=== PATIENT | female | born 1990 | race Caucasian/White ===

== ENCOUNTER 2018-04-26 16:52 | Inpatient (IN) | payer OTHER, MEDICAID ==
[~2018-04-26] VITALS: Ht 167.6 cm; Wt 55.7 kg
[~2018-04-26 16:52] MED LIST: LAMO100T89 PO; LAMO200T PO; OXCA300T PO; etomidate 2mg/ml inj. ONE; rocuronium 10mg/ml inj IV ONE
[2018-04-26] MEDS ORDERED: LORazepam 2 mg/ml vial IV ONE ×3 (16:55→18:45)
[2018-04-26] MEDS ORDERED: normal saline 1000ML IV soln IVB ONE ×2 (16:55→19:35)
[2018-04-26] MEDS ORDERED: ondansetron/PF 4mg/2ml inj IV ONE (16:55)
[2018-04-26] MEDS ORDERED: levetiracetam inj 1,000 MG in normal saline 100ml IV soln 90 ML IV STA (16:56)
[2018-04-26 17:29] LABS: BASOPHILS # (AUTO) 0.1 X10'3 (0-0.2); BASOPHILS % (AUTO) 0.6 % (0-1); EOSINOPHILS # (AUTO) 0.1 X10'3 (0-0.9); EOSINOPHILS % (AUTO) 1.2 % (0-6); HEMOGLOBIN 14.4 g/dl (12.0-16.0); LYMPHOCYTES % (AUTO) 10.8 % (21-51); MEAN CORPUSCULAR HEMOGLOBIN 32.1 PG (27.0-31.0); MEAN CORPUSCULAR HGB CONC 34.3 % (33.0-36.5); MEAN CORPUSCULAR VOLUME 93.7 FL (78-98); MEAN PLATELET VOLUME 8.5 FL (7.4-10.4); MONOCYTES # (AUTO) 0.5 X10'3 (0-0.9); MONOCYTES % (AUTO) 5.5 % (2-12); NEUTROPHILS # (AUTO) 7.8 X10'3 (1.8-7.7); NEUTROPHILS % (AUTO) 81.9 % (42-75); PLATELET COUNT 224 X10'3 (140-440); RED BLOOD COUNT 4.48 X10'6 (4.20-5.60); RED CELL DISTRIBUTION WIDTH 13.2 % (11.5-14.5); WHITE BLOOD COUNT 9.5 X10'3 (4.5-11.0)
[2018-04-26 17:37] LABS: CLARITY,URINE CLOUDY (Clear); COLOR,URINE YELLOW (Yellow); GLUCOSE, URINE NEGATIVE (Neg); KETONES,URINE 40 mg/dl (Neg); LEUKOCYTE ESTERASE ,URINE NEGATIVE (Neg); NITRITES, URINE NEGATIVE (Neg); OCCULT BLOOD,URINE NEGATIVE (Neg); PH,URINE 5.5 (4.8-8.0); PROTEIN,URINE 30 mg/dl (Neg); UROBILINOGEN,URINE 0.2 E.U/dL (0.2-1.0)
[2018-04-26 17:39] LABS: UA COLLECTION TYPE STRAIGHT CATH
[2018-04-26 17:47] LABS: SQUAMOUS EPITHELIAL CELL,UR FEW /LPF (FEW)
[2018-04-26 17:48] LABS: MUCUS STRANDS MODERATE /LPF (Neg)
[2018-04-26 17:49] LABS: BACTERIA,URINE FEW /HPF (Neg); RBC,URINE 0-2 /HPF (0-2); WBC,URINE 0-4 /HPF (0-4)
[2018-04-26 17:54] LABS: ALANINE AMINOTRANSFERASE 25 U/L (12-78); ALBUMIN 4.2 G/DL (3.4-5.0); ALBUMIN/GLOBULIN RATIO 1.1 (1.1-1.5); ALKALINE PHOSPHATASE 93 IU/L (46-116); ANION GAP 11 (8-16); ASPARTATE AMINO TRANSFERASE 40 U/L (10-37); BILIRUBIN,TOTAL 0.3 MG/DL (0.1-1.0); BLOOD UREA NITROGEN 18 MG/DL (7-18); BUN/CREATININE RATIO 24.3 (6.6-38.0); CALCIUM 9.2 MG/DL (8.5-10.1); CHLORIDE 101 MMOL/L (99-107); CREATININE 0.74 MG/DL (0.40-0.90); GLUCOSE 89 MG/DL (70-104); LIPASE 95 U/L (73-393); POTASSIUM 3.5 MMOL/L (3.5-5.1); SODIUM 138 MMOL/L (135-145); TOTAL CARBON DIOXIDE 26.4 MMOL/L (24-32); eGFR > 90 ML/MIN
[2018-04-26 17:58] LABS: CARBAMAZEPINE (TEGRETOL) < 0.5 UG/ML (4.0-12.0)
[2018-04-26] MEDS ORDERED: phenobarbital inj 500 MG in normal saline 250ml IV soln 246.1538 ML IV ONE (19:05)
[2018-04-26] MEDS ORDERED: propofol 1000mg/100ml bottle 100 ML IV PRN (20:07)
[2018-04-26] MEDS ORDERED: midazolam 2 mg/2 ml injection IV ONE (20:10)
[2018-04-26] MEDS ORDERED: fentaNYL/PF 50MCG/1 ML 2ML syringe IV PRN (20:10)
[2018-04-26] MEDS ORDERED: CefTRIAXone 2gm/D5W 50ml 50 ML IV ONE (20:15)
[2018-04-26 20:24] LABS: MAGNESIUM 2.1 MG/DL (1.5-2.4); PHOSPHORUS 2.7 MG/DL (2.3-4.5)
[2018-04-26] MEDS ORDERED: levetiracetam inj 500 MG in normal saline 100ml IV soln 95 ML IV STA (20:28)
[2018-04-26 20:32] LABS: URINE AMPHETAMINE SCREEN POSITIVE (Neg); URINE BARBITUATE SCREEN NEGATIVE (Neg); URINE BENZODIAZEPINES SCREEN NEGATIVE (Neg); URINE CANNABINOID SCREEN POSITIVE (Neg); URINE COCAINE SCREEN NEGATIVE (Neg); URINE METHADONE SCREEN NEGATIVE (Neg); URINE OPIATE SCREEN NEGATIVE (Neg); URINE PHENCYCLIDINE SCREEN NEGATIVE (Neg)
[2018-04-26] MEDS ORDERED: potassium Cl 40MEQ/NS 500ml 500 ML IV PRN ×2 (20:45)
[2018-04-26] MEDS ORDERED: magnesium 1gm/100ml D5W IVPB 100 ML IV PRN (20:45)
[2018-04-26] MEDS: K, MAG and/or Phos replacement - Verify level? MC SCH (20:45)
[2018-04-26] MEDS ORDERED: ondansetron/PF 4mg/2ml inj IV PRN (20:45)
[2018-04-26] MEDS ORDERED: magnesium hydroxide 30ml (MOM) UD suspension PO PRN (20:45)
[2018-04-26] MEDS ORDERED: acetaminophen 325mg tablet PO PRN (20:45)
[2018-04-26] MEDS ORDERED: potassium Cl 20 mEq SR tablet PO PRN ×2 (20:45)
[2018-04-26] MEDS ORDERED: magnesium Cl slow-release 64mg tablet PO PRN (20:45)
[2018-04-26] MEDS ORDERED: magnesium 4gm in 100ml NS 100 ML IV PRN (20:45)
[2018-04-26] MEDS ORDERED: morphine 4 MG/ML inj SYRINge IV PRN ×2 (20:45)
[2018-04-26] MEDS ORDERED: ipratropium/albuterol 3ml nebule NEB PRN (20:45)
[2018-04-26 20:50] LABS: HCG SERUM QL NEGATIVE
[2018-04-26] MEDS ORDERED: acyclovir inj 1,000 MG in normal saline 250ml IV soln 230 ML IV STA (21:10)
[2018-04-26 21:11] LABS: ABG HCO3 19.4 mmol/L (22.0-26.0); ABG OXYGEN SATURATION 98.7 % (95-98); ABG PCO2 (T) 34.9 mmHg (32.0-45.0); ABG PH (T) 7.367 (7.350-7.450); ABG PO2 (T) 176.4 mmHg (83-108); ALLEN'S TEST Positive; FCOHb 0.2 % (0.5-1.5); FMetHb 0.1 % (0.3-1.12); FO2Hb 98.4 % (94-100); MINUTE VOLUME 9 L/min; PATIENT TEMPERATURE 37.7; PEEP 5 cm H2O; RESPIRATORY RATE 14 b/min; RESPIRATORY RATE (OBSERVED) 20 b/min; TIDAL VOLUME 400 mL; TOTAL HEMOGLOBIN 11.8 G/dl (12.0-16.0)
[2018-04-26 21:32] LABS: APPEARANCE,CSF CLEAR; CSF RBC 1 /CU MM (0); CSF SUPERNATANT COLOR COLORLESS; CSF VOLUME 4 ML; TUBE# COUNTED 4
[2018-04-26 21:35] LABS: CSF WBC CT 1 /CU MM (0-5)
[2018-04-26 21:38] LABS: GLUCOSE,CSF 69 MG/DL (40-75); TOTAL PROTEIN,CSF 42 MG/DL (15-45)
[2018-04-26] MEDS: normal saline 1000ml 1,000 ML IV SCH (22:04)
[2018-04-26] MEDS: midazolam 100mg in NS 100ml 100 ML IV PRN (22:53)
[2018-04-26] MEDS: FENTANYL-0.9 % NACL/PF 100 ML IV PRN (22:53)
[2018-04-26 23:00] VITALS: BP 117/71
[2018-04-26 23:00] LABS: BASOPHILS % (AUTO) 0.4 % (0-1); EOSINOPHILS % (AUTO) 0.6 % (0-6); HEMOGLOBIN 11.1 g/dl (12.0-16.0); LYMPHOCYTES # (AUTO) 1.6 X10'3 (1.1-4.8); LYMPHOCYTES % (AUTO) 22.4 % (21-51); MEAN CORPUSCULAR HGB CONC 33.8 % (33.0-36.5); MEAN CORPUSCULAR VOLUME 94.8 FL (78-98); MEAN PLATELET VOLUME 8.6 FL (7.4-10.4); MONOCYTES # (AUTO) 0.6 X10'3 (0-0.9); NEUTROPHILS # (AUTO) 4.7 X10'3 (1.8-7.7); NEUTROPHILS % (AUTO) 67.6 % (42-75); PLATELET COUNT 161 X10'3 (140-440); RED BLOOD COUNT 3.48 X10'6 (4.20-5.60); RED CELL DISTRIBUTION WIDTH 12.9 % (11.5-14.5)
[2018-04-27] VITALS (24 sets, daily range): BP systolic 105–134; BP diastolic 60–85
[2018-04-27 02:08] LABS: BASOPHILS % (AUTO) 0.4 % (0-1); EOSINOPHILS # (AUTO) 0.1 X10'3 (0-0.9); HEMATOCRIT 33.1 % (35.0-45.0); HEMOGLOBIN 11.2 g/dl (12.0-16.0); LYMPHOCYTES # (AUTO) 2.4 X10'3 (1.1-4.8); LYMPHOCYTES % (AUTO) 26.5 % (21-51); MEAN CORPUSCULAR HEMOGLOBIN 32.1 PG (27.0-31.0); MEAN CORPUSCULAR HGB CONC 33.7 % (33.0-36.5); MEAN CORPUSCULAR VOLUME 95.1 FL (78-98); MEAN PLATELET VOLUME 8.3 FL (7.4-10.4); MONOCYTES # (AUTO) 0.9 X10'3 (0-0.9); MONOCYTES % (AUTO) 10.2 % (2-12); NEUTROPHILS # (AUTO) 5.7 X10'3 (1.8-7.7); NEUTROPHILS % (AUTO) 61.9 % (42-75); PLATELET COUNT 163 X10'3 (140-440); RED BLOOD COUNT 3.48 X10'6 (4.20-5.60); RED CELL DISTRIBUTION WIDTH 12.8 % (11.5-14.5); WHITE BLOOD COUNT 9.2 X10'3 (4.5-11.0)
[2018-04-27] MEDS: LORazepam 2 mg/ml vial IV PRN (02:15)
[2018-04-27 02:23] LABS: ALANINE AMINOTRANSFERASE 32 U/L (12-78); ALBUMIN 2.9 G/DL (3.4-5.0); ALKALINE PHOSPHATASE 68 IU/L (46-116); ANION GAP 9 (8-16); ASPARTATE AMINO TRANSFERASE 39 U/L (10-37); BILIRUBIN,TOTAL 0.2 MG/DL (0.1-1.0); BLOOD UREA NITROGEN 12 MG/DL (7-18); BUN/CREATININE RATIO 20.3 (6.6-38.0); CALCIUM 7.4 MG/DL (8.5-10.1); CHLORIDE 109 MMOL/L (99-107); CREATININE 0.59 MG/DL (0.40-0.90); GLUCOSE 78 MG/DL (70-104); MAGNESIUM 1.9 MG/DL (1.5-2.4); SODIUM 143 MMOL/L (135-145); TOTAL PROTEIN 5.8 G/DL (6.4-8.2); eGFR > 90 ML/MIN
[2018-04-27] MEDS: potassium Cl 40MEQ/250ML bag 250 ML IV PRN ×3 (03:08→11:15)
[2018-04-27 03:16] LABS: ABG BASE EXCESS -1.1 mmol/L (-2.0-3.0); ABG HCO3 23.6 mmol/L (22.0-26.0); ABG OXYGEN SATURATION 97.9 % (95-98); ABG PCO2 (T) 40.2 mmHg (32.0-45.0); ABG PH (T) 7.388 (7.350-7.450); ABG PO2 (T) 116.8 mmHg (83-108); ALLEN'S TEST Positive; FCOHb 0.3 % (0.5-1.5); FMetHb 0.1 % (0.3-1.12); FO2Hb 97.5 % (94-100); MINUTE VOLUME 6 L/min; PATIENT TEMPERATURE 37.6; PEEP 5 cm H2O; RESPIRATORY RATE 14 b/min; RESPIRATORY RATE (OBSERVED) 14 b/min; TIDAL VOLUME 400 mL
[2018-04-27] MEDS ORDERED: CARB200T PO ×2 (05:21→05:22)
[2018-04-27] MEDS ORDERED: CARB100T7 PO ×2 (06:10→06:11)
[2018-04-27 07:07] LABS: BASOPHILS % (AUTO) 0.6 % (0-1); EOSINOPHILS % (AUTO) 0.5 % (0-6); HEMATOCRIT 32.3 % (35.0-45.0); LYMPHOCYTES # (AUTO) 2.7 X10'3 (1.1-4.8); MEAN CORPUSCULAR HEMOGLOBIN 31.7 PG (27.0-31.0); MEAN CORPUSCULAR VOLUME 93.4 FL (78-98); MEAN PLATELET VOLUME 8.1 FL (7.4-10.4); MONOCYTES # (AUTO) 0.8 X10'3 (0-0.9); MONOCYTES % (AUTO) 9.6 % (2-12); NEUTROPHILS # (AUTO) 4.8 X10'3 (1.8-7.7); NEUTROPHILS % (AUTO) 57.3 % (42-75); PLATELET COUNT 161 X10'3 (140-440); RED BLOOD COUNT 3.46 X10'6 (4.20-5.60); RED CELL DISTRIBUTION WIDTH 13.3 % (11.5-14.5); WHITE BLOOD COUNT 8.3 X10'3 (4.5-11.0)
[2018-04-27] MEDS ORDERED: dextrose 50%-water 50ml dispensing syringe IV PRN (07:30)
[2018-04-27] MEDS: dextrose 50%-water 50ml dispensing syringe IV PRN ×3 (07:33→20:39)
[2018-04-27] MEDS: pantoprazole 40 MG vial IV SCH (07:35)
[2018-04-27] MEDS: enoxaparin 40mg/0.4ml syringe SUBCUT SCH (07:37)
[2018-04-27] MEDS: carBAMazepine 100mg chewable tablet PO SCH ×2 (07:38→20:47)
[2018-04-27] MEDS ORDERED: OXCARBAZEPINE PO SCH (08:00)
[2018-04-27] MEDS ORDERED: lamoTRIgine 100mg tablet PO SCH (08:00)
[2018-04-27] MEDS ORDERED: non-formulary drug (Lamotrigine 1 TAB) PO SCH (08:00)
[2018-04-27] MEDS: K, MAG and/or Phos replacement - Verify level? MC SCH (08:00)
[2018-04-27] MEDS: normal saline 1000ml 1,000 ML IV SCH ×2 (08:41→17:27)
[2018-04-27] MEDS: levetiracetam inj 1,000 MG in normal saline 100ml IV soln 90 ML IV SCH ×2 (08:44→20:48)
[2018-04-27] MEDS: midazolam 100mg in NS 100ml 100 ML IV PRN (11:22)
[2018-04-27] MEDS: FENTANYL-0.9 % NACL/PF 100 ML IV PRN (16:16)
[2018-04-28] VITALS (24 sets, daily range): BP systolic 104–136; BP diastolic 66–83
[2018-04-28] MEDS: dextrose 50%-water 50ml dispensing syringe IV PRN (00:44)
[2018-04-28] MEDS: dextrose 5%-1/2 normal saline 1,000 ML IV SCH ×4 (01:25→23:04)
[2018-04-28] MEDS: mineral oil/petrolatum ophthal oint EACHEYE SCH ×4 (02:11→20:05)
[2018-04-28 02:54] LABS: BASOPHILS % (AUTO) 0.3 % (0-1); EOSINOPHILS # (AUTO) 0.1 X10'3 (0-0.9); EOSINOPHILS % (AUTO) 1.1 % (0-6); HEMATOCRIT 32.4 % (35.0-45.0); HEMOGLOBIN 10.9 g/dl (12.0-16.0); LYMPHOCYTES # (AUTO) 2.1 X10'3 (1.1-4.8); LYMPHOCYTES % (AUTO) 27.6 % (21-51); MEAN CORPUSCULAR HEMOGLOBIN 31.9 PG (27.0-31.0); MEAN CORPUSCULAR HGB CONC 33.6 % (33.0-36.5); MEAN CORPUSCULAR VOLUME 94.9 FL (78-98); MEAN PLATELET VOLUME 8.3 FL (7.4-10.4); MONOCYTES # (AUTO) 0.8 X10'3 (0-0.9); MONOCYTES % (AUTO) 10.3 % (2-12); NEUTROPHILS # (AUTO) 4.7 X10'3 (1.8-7.7); NEUTROPHILS % (AUTO) 60.7 % (42-75); PLATELET COUNT 138 X10'3 (140-440); RED BLOOD COUNT 3.42 X10'6 (4.20-5.60); RED CELL DISTRIBUTION WIDTH 12.9 % (11.5-14.5); WHITE BLOOD COUNT 7.8 X10'3 (4.5-11.0)
[2018-04-28 03:10] LABS: ALANINE AMINOTRANSFERASE 29 U/L (12-78); ALBUMIN 2.7 G/DL (3.4-5.0); ALBUMIN/GLOBULIN RATIO 0.9 (1.1-1.5); ALKALINE PHOSPHATASE 67 IU/L (46-116); ANION GAP 6 (8-16); ASPARTATE AMINO TRANSFERASE 26 U/L (10-37); BILIRUBIN,TOTAL 0.4 MG/DL (0.1-1.0); BLOOD UREA NITROGEN 5 MG/DL (7-18); BUN/CREATININE RATIO 9.8 (6.6-38.0); CALCIUM 7.6 MG/DL (8.5-10.1); CHLORIDE 103 MMOL/L (99-107); CREATININE 0.51 MG/DL (0.40-0.90); GLUCOSE 101 MG/DL (70-104); MAGNESIUM 1.7 MG/DL (1.5-2.4); POTASSIUM 3.1 MMOL/L (3.5-5.1); SODIUM 137 MMOL/L (135-145); TOTAL CARBON DIOXIDE 27.9 MMOL/L (24-32); TOTAL PROTEIN 5.8 G/DL (6.4-8.2); eGFR > 90 ML/MIN
[2018-04-28 03:30] LABS: ABG BASE EXCESS 0.2 mmol/L (-2.0-3.0); ABG HCO3 23.9 mmol/L (22.0-26.0); ABG OXYGEN SATURATION 97.9 % (95-98); ABG PCO2 (T) 36.6 mmHg (32.0-45.0); ABG PH (T) 7.436 (7.350-7.450); ABG PO2 (T) 107.5 mmHg (83-108); FCOHb 0.3 % (0.5-1.5); FMetHb 0.1 % (0.3-1.12); FO2Hb 97.5 % (94-100); MINUTE VOLUME 6 L/min; PATIENT TEMPERATURE 37.5; PEEP 5 cm H2O; RESPIRATORY RATE 14 b/min; RESPIRATORY RATE (OBSERVED) 14 b/min; TIDAL VOLUME 400 mL
[2018-04-28] MEDS: pantoprazole 40 MG vial IV SCH (08:26)
[2018-04-28] MEDS: carBAMazepine 100mg chewable tablet PO SCH ×2 (08:26→20:06)
[2018-04-28] MEDS: levetiracetam inj 1,000 MG in normal saline 100ml IV soln 90 ML IV SCH (08:26)
[2018-04-28] MEDS: enoxaparin 40mg/0.4ml syringe SUBCUT SCH (08:27)
[2018-04-28] MEDS: K, MAG and/or Phos replacement - Verify level? MC SCH (08:27)
[2018-04-28] MEDS: potassium Cl 40MEQ/250ML bag 250 ML IV PRN (08:36)
[2018-04-28] MEDS: LORazepam 2 mg/ml vial IV PRN (23:44)
[2018-04-29] VITALS (23 sets, daily range): BP systolic 96–128; BP diastolic 51–83
[2018-04-29] MEDS: mineral oil/petrolatum ophthal oint EACHEYE SCH ×4 (02:30→20:00)
[2018-04-29 03:29] LABS: BASOPHILS % (AUTO) 0.3 % (0-1); EOSINOPHILS # (AUTO) 0.1 X10'3 (0-0.9); EOSINOPHILS % (AUTO) 0.8 % (0-6); HEMATOCRIT 31.9 % (35.0-45.0); HEMOGLOBIN 10.8 g/dl (12.0-16.0); LYMPHOCYTES # (AUTO) 1.6 X10'3 (1.1-4.8); LYMPHOCYTES % (AUTO) 23.3 % (21-51); MEAN CORPUSCULAR HGB CONC 33.8 % (33.0-36.5); MEAN CORPUSCULAR VOLUME 94.7 FL (78-98); MEAN PLATELET VOLUME 8.7 FL (7.4-10.4); MONOCYTES # (AUTO) 0.7 X10'3 (0-0.9); MONOCYTES % (AUTO) 10.3 % (2-12); NEUTROPHILS # (AUTO) 4.6 X10'3 (1.8-7.7); NEUTROPHILS % (AUTO) 65.3 % (42-75); PLATELET COUNT 148 X10'3 (140-440); RED BLOOD COUNT 3.37 X10'6 (4.20-5.60); RED CELL DISTRIBUTION WIDTH 11.7 % (11.5-14.5)
[2018-04-29 03:31] LABS: ALANINE AMINOTRANSFERASE 24 U/L (12-78); ALBUMIN 2.5 G/DL (3.4-5.0); ALBUMIN/GLOBULIN RATIO 0.8 (1.1-1.5); ALKALINE PHOSPHATASE 63 IU/L (46-116); ANION GAP 3 (8-16); ASPARTATE AMINO TRANSFERASE 19 U/L (10-37); BILIRUBIN,TOTAL 0.4 MG/DL (0.1-1.0); BLOOD UREA NITROGEN 4 MG/DL (7-18); BUN/CREATININE RATIO 7.3 (6.6-38.0); CALCIUM 7.8 MG/DL (8.5-10.1); CHLORIDE 103 MMOL/L (99-107); CREATININE 0.55 MG/DL (0.40-0.90); GLUCOSE 107 MG/DL (70-104); MAGNESIUM 1.8 MG/DL (1.5-2.4); SODIUM 137 MMOL/L (135-145); TOTAL CARBON DIOXIDE 30.8 MMOL/L (24-32); TOTAL PROTEIN 5.8 G/DL (6.4-8.2); eGFR > 90 ML/MIN
[2018-04-29 03:34] LABS: POTASSIUM 2.8 MMOL/L (3.5-5.1)
[2018-04-29] MEDS: LORazepam 2 mg/ml vial IV PRN (03:39)
[2018-04-29 03:56] LABS: ABG BASE EXCESS 3.6 mmol/L (-2.0-3.0); ABG HCO3 26.9 mmol/L (22.0-26.0); ABG OXYGEN SATURATION 98.2 % (95-98); ABG PCO2 (T) 36.6 mmHg (32.0-45.0); ABG PH (T) 7.485 (7.350-7.450); ABG PO2 (T) 114.3 mmHg (83-108); FCOHb 0.3 % (0.5-1.5); FO2Hb 97.9 % (94-100); MINUTE VOLUME 6 L/min; PATIENT TEMPERATURE 37.1; PEEP 5 cm H2O; RESPIRATORY RATE 14 b/min; RESPIRATORY RATE (OBSERVED) 16 b/min; TIDAL VOLUME 400 mL; TOTAL HEMOGLOBIN 11.6 G/dl (12.0-16.0)
[2018-04-29] MEDS: potassium Cl 40MEQ/250ML bag 250 ML IV PRN (04:01)
[2018-04-29] MEDS: K, MAG and/or Phos replacement - Verify level? MC SCH (08:05)
[2018-04-29] MEDS: pantoprazole 40 MG vial IV SCH (08:51)
[2018-04-29] MEDS: enoxaparin 40mg/0.4ml syringe SUBCUT SCH (08:51)
[2018-04-29] MEDS: carBAMazepine 100mg chewable tablet PO SCH ×2 (08:52→20:57)
[2018-04-29] MEDS: dextrose 5%-1/2 normal saline 1,000 ML IV SCH (15:52)
[2018-04-29] MEDS: acetaminophen 325mg tablet PO PRN (20:54)
[2018-04-30] VITALS (24 sets, daily range): BP systolic 112–127; BP diastolic 64–80
[2018-04-30] MEDS: mineral oil/petrolatum ophthal oint EACHEYE SCH ×4 (02:00→20:00)
[2018-04-30 03:35] LABS: BASOPHILS % (AUTO) 0.4 % (0-1); EOSINOPHILS # (AUTO) 0.1 X10'3 (0-0.9); EOSINOPHILS % (AUTO) 1.6 % (0-6); HEMATOCRIT 31.1 % (35.0-45.0); HEMOGLOBIN 10.5 g/dl (12.0-16.0); LYMPHOCYTES # (AUTO) 1.1 X10'3 (1.1-4.8); LYMPHOCYTES % (AUTO) 16.3 % (21-51); MEAN CORPUSCULAR HEMOGLOBIN 31.9 PG (27.0-31.0); MEAN CORPUSCULAR HGB CONC 33.8 % (33.0-36.5); MEAN CORPUSCULAR VOLUME 94.5 FL (78-98); MEAN PLATELET VOLUME 8.6 FL (7.4-10.4); MONOCYTES # (AUTO) 0.8 X10'3 (0-0.9); MONOCYTES % (AUTO) 11.3 % (2-12); NEUTROPHILS % (AUTO) 70.4 % (42-75); PLATELET COUNT 151 X10'3 (140-440); RED CELL DISTRIBUTION WIDTH 12.1 % (11.5-14.5)
[2018-04-30 03:38] LABS: ALANINE AMINOTRANSFERASE 26 U/L (12-78); ALBUMIN 2.6 G/DL (3.4-5.0); ALBUMIN/GLOBULIN RATIO 0.7 (1.1-1.5); ALKALINE PHOSPHATASE 69 IU/L (46-116); ANION GAP 8 (8-16); ASPARTATE AMINO TRANSFERASE 16 U/L (10-37); BILIRUBIN,TOTAL 0.5 MG/DL (0.1-1.0); BLOOD UREA NITROGEN 3 MG/DL (7-18); BUN/CREATININE RATIO 5.9 (6.6-38.0); CALCIUM 8.1 MG/DL (8.5-10.1); CHLORIDE 103 MMOL/L (99-107); CREATININE 0.51 MG/DL (0.40-0.90); GLUCOSE 93 MG/DL (70-104); MAGNESIUM 1.9 MG/DL (1.5-2.4); POTASSIUM 3.2 MMOL/L (3.5-5.1); SODIUM 139 MMOL/L (135-145); TOTAL CARBON DIOXIDE 28.4 MMOL/L (24-32); TOTAL PROTEIN 6.1 G/DL (6.4-8.2); eGFR > 90 ML/MIN
[2018-04-30 04:21] LABS: ABG BASE EXCESS 1.7 mmol/L (-2.0-3.0); ABG HCO3 25.2 mmol/L (22.0-26.0); ABG OXYGEN SATURATION 97.3 % (95-98); ABG PH (T) 7.454 (7.350-7.450); ABG PO2 (T) 101.1 mmHg (83-108); FCOHb 0.3 % (0.5-1.5); FMetHb 0.2 % (0.3-1.12); FO2Hb 96.8 % (94-100); MINUTE VOLUME 7 L/min; PATIENT TEMPERATURE 37.8; PEEP 5 cm H2O; RESPIRATORY RATE (OBSERVED) 11 b/min; TOTAL HEMOGLOBIN 11.7 G/dl (12.0-16.0)
[2018-04-30] MEDS: potassium Cl 40MEQ/250ML bag 250 ML IV PRN (05:47)
[2018-04-30] MEDS: dextrose 5%-1/2 normal saline 1,000 ML IV SCH ×2 (05:48→13:05)
[2018-04-30] MEDS: K, MAG and/or Phos replacement - Verify level? MC SCH (08:00)
[2018-04-30] MEDS: carBAMazepine 100mg chewable tablet PO SCH ×2 (09:31→20:48)
[2018-04-30] MEDS: pantoprazole 40 MG vial IV SCH (09:32)
[2018-04-30] MEDS: enoxaparin 40mg/0.4ml syringe SUBCUT SCH (09:32)
[2018-04-30] MEDS: azithromycin 250mg tablet PO SCH (12:46)
[2018-04-30] MEDS ORDERED: LEVETIRACETAM IV SCH (20:00)
[2018-04-30] MEDS ORDERED: levetiracetam inj 1,500 MG in normal saline 100ml IV soln 85 ML IV SCH (20:00)
[2018-04-30] MEDS ORDERED: levetiracetam inj 500 MG in normal saline 100ml IV soln 95 ML IV SCH (20:00)
[2018-04-30] MEDS ORDERED: NORMAL SALINE IV SCH (20:00)
[2018-04-30] MEDS: LEVETIRACETAM IV SCH (20:48)
[2018-04-30] MEDS: NORMAL SALINE IV SCH (20:48)
[2018-04-30] MEDS: acetaminophen 325mg tablet PO PRN (22:13)
[2018-05-01] VITALS (24 sets, daily range): BP systolic 105–128; BP diastolic 63–79
[2018-05-01] MEDS: mineral oil/petrolatum ophthal oint EACHEYE SCH ×4 (02:00→20:00)
[2018-05-01 03:29] LABS: BASOPHILS % (AUTO) 0.3 % (0-1); EOSINOPHILS # (AUTO) 0.1 X10'3 (0-0.9); EOSINOPHILS % (AUTO) 1.3 % (0-6); HEMATOCRIT 31.5 % (35.0-45.0); HEMOGLOBIN 10.7 g/dl (12.0-16.0); LYMPHOCYTES # (AUTO) 1.1 X10'3 (1.1-4.8); LYMPHOCYTES % (AUTO) 15.1 % (21-51); MEAN CORPUSCULAR HEMOGLOBIN 32.2 PG (27.0-31.0); MEAN CORPUSCULAR HGB CONC 33.9 % (33.0-36.5); MEAN CORPUSCULAR VOLUME 95.1 FL (78-98); MEAN PLATELET VOLUME 8.8 FL (7.4-10.4); MONOCYTES # (AUTO) 0.8 X10'3 (0-0.9); MONOCYTES % (AUTO) 11.2 % (2-12); NEUTROPHILS # (AUTO) 5.3 X10'3 (1.8-7.7); NEUTROPHILS % (AUTO) 72.1 % (42-75); PLATELET COUNT 165 X10'3 (140-440); RED BLOOD COUNT 3.31 X10'6 (4.20-5.60); RED CELL DISTRIBUTION WIDTH 11.8 % (11.5-14.5); WHITE BLOOD COUNT 7.3 X10'3 (4.5-11.0)
[2018-05-01 03:42] LABS: ALANINE AMINOTRANSFERASE 28 U/L (12-78); ALBUMIN 2.7 G/DL (3.4-5.0); ALBUMIN/GLOBULIN RATIO 0.7 (1.1-1.5); ALKALINE PHOSPHATASE 75 IU/L (46-116); ANION GAP 7 (8-16); ASPARTATE AMINO TRANSFERASE 17 U/L (10-37); BILIRUBIN,TOTAL 0.3 MG/DL (0.1-1.0); BLOOD UREA NITROGEN 4 MG/DL (7-18); CALCIUM 8.2 MG/DL (8.5-10.1); CHLORIDE 102 MMOL/L (99-107); CREATININE 0.57 MG/DL (0.40-0.90); GLUCOSE 113 MG/DL (70-104); MAGNESIUM 1.9 MG/DL (1.5-2.4); POTASSIUM 3.4 MMOL/L (3.5-5.1); SODIUM 138 MMOL/L (135-145); TOTAL CARBON DIOXIDE 29.4 MMOL/L (24-32); TOTAL PROTEIN 6.7 G/DL (6.4-8.2); eGFR > 90 ML/MIN
[2018-05-01 03:56] LABS: ABG BASE EXCESS 1.8 mmol/L (-2.0-3.0); ABG HCO3 25.2 mmol/L (22.0-26.0); ABG OXYGEN SATURATION 97.9 % (95-98); ABG PCO2 (T) 36.3 mmHg (32.0-45.0); ABG PH (T) 7.462 (7.350-7.450); ABG PO2 (T) 114.5 mmHg (83-108); FCOHb 0.3 % (0.5-1.5); FMetHb 0.2 % (0.3-1.12); FO2Hb 97.4 % (94-100); MINUTE VOLUME 7 L/min; PATIENT TEMPERATURE 37.9; PEEP 5 cm H2O; RESPIRATORY RATE (OBSERVED) 10 b/min; TOTAL HEMOGLOBIN 11.4 G/dl (12.0-16.0)
[2018-05-01] MEDS: dextrose 5%-1/2 normal saline 1,000 ML IV SCH ×2 (04:02→07:55)
[2018-05-01] MEDS: potassium Cl 40MEQ/250ML bag 250 ML IV PRN (05:52)
[2018-05-01] MEDS: pantoprazole 40 MG vial IV SCH (07:53)
[2018-05-01] MEDS: enoxaparin 40mg/0.4ml syringe SUBCUT SCH (07:53)
[2018-05-01] MEDS: NORMAL SALINE IV SCH (07:53)
[2018-05-01] MEDS: LEVETIRACETAM IV SCH (07:53)
[2018-05-01] MEDS: carBAMazepine 100mg chewable tablet PO SCH ×2 (07:54→20:32)
[2018-05-01] MEDS: azithromycin 250mg tablet PO SCH (07:54)
[2018-05-01] MEDS: K, MAG and/or Phos replacement - Verify level? MC SCH (07:55)
[2018-05-01 09:14] LABS: CSF WEST NILE VIRUS, IGG Negative (Negative)
[2018-05-01] MEDS: cefTRIAXone 1g/NS 100ml IVPB 100 ML IV SCH (10:29)
[2018-05-01 14:43] LABS: CSF WEST NILE VIRUS, IGM Negative (Negative)
[2018-05-01] MEDS: levetiracetam inj 500 MG in normal saline 100ml IV soln 95 ML IV SCH (20:31)
[2018-05-01] MEDS: acetaminophen 325mg tablet PO PRN (20:31)
[2018-05-02] VITALS (24 sets, daily range): BP systolic 87–136; BP diastolic 47–80
[2018-05-02] MEDS: dextrose 5%-1/2 normal saline 1,000 ML IV SCH ×3 (00:29→16:02)
[2018-05-02] MEDS: propofol 1000mg/100ml bottle 100 ML IV PRN ×3 (00:34→20:56)
[2018-05-02] MEDS: mineral oil/petrolatum ophthal oint EACHEYE SCH ×4 (02:00→20:54)
[2018-05-02] MEDS: levetiracetam inj 500 MG in normal saline 100ml IV soln 95 ML IV SCH ×4 (03:42→20:38)
[2018-05-02 03:52] LABS: ALANINE AMINOTRANSFERASE 24 U/L (12-78); ALBUMIN 2.5 G/DL (3.4-5.0); ALBUMIN/GLOBULIN RATIO 0.6 (1.1-1.5); ALKALINE PHOSPHATASE 67 IU/L (46-116); ANION GAP 4 (8-16); ASPARTATE AMINO TRANSFERASE 13 U/L (10-37); BILIRUBIN,TOTAL 0.3 MG/DL (0.1-1.0); BLOOD UREA NITROGEN 7 MG/DL (7-18); BUN/CREATININE RATIO 12.5 (6.6-38.0); CALCIUM 8.3 MG/DL (8.5-10.1); CHLORIDE 102 MMOL/L (99-107); CREATININE 0.56 MG/DL (0.40-0.90); GLUCOSE 119 MG/DL (70-104); POTASSIUM 3.1 MMOL/L (3.5-5.1); SODIUM 135 MMOL/L (135-145); TOTAL CARBON DIOXIDE 29.1 MMOL/L (24-32); TOTAL PROTEIN 6.5 G/DL (6.4-8.2); eGFR > 90 ML/MIN
[2018-05-02 03:53] LABS: BASOPHILS % (AUTO) 0.2 % (0-1); EOSINOPHILS # (AUTO) 0.1 X10'3 (0-0.9); EOSINOPHILS % (AUTO) 1.3 % (0-6); HEMATOCRIT 30.2 % (35.0-45.0); HEMOGLOBIN 10.3 g/dl (12.0-16.0); LYMPHOCYTES # (AUTO) 1.1 X10'3 (1.1-4.8); MEAN CORPUSCULAR HEMOGLOBIN 32.3 PG (27.0-31.0); MEAN CORPUSCULAR HGB CONC 33.9 % (33.0-36.5); MEAN CORPUSCULAR VOLUME 95.3 FL (78-98); MEAN PLATELET VOLUME 8.4 FL (7.4-10.4); MONOCYTES # (AUTO) 0.7 X10'3 (0-0.9); MONOCYTES % (AUTO) 9.8 % (2-12); NEUTROPHILS # (AUTO) 5.6 X10'3 (1.8-7.7); NEUTROPHILS % (AUTO) 74.7 % (42-75); PLATELET COUNT 195 X10'3 (140-440); RED BLOOD COUNT 3.17 X10'6 (4.20-5.60); RED CELL DISTRIBUTION WIDTH 12.4 % (11.5-14.5); WHITE BLOOD COUNT 7.5 X10'3 (4.5-11.0)
[2018-05-02 03:56] LABS: ABG BASE EXCESS 3.6 mmol/L (-2.0-3.0); ABG OXYGEN SATURATION 98.2 % (95-98); ABG PCO2 (T) 37.9 mmHg (32.0-45.0); ABG PH (T) 7.474 (7.350-7.450); ABG PO2 (T) 121.9 mmHg (83-108); ALLEN'S TEST Positive; FCOHb 0.3 % (0.5-1.5); FMetHb 0.1 % (0.3-1.12); FO2Hb 97.8 % (94-100); MINUTE VOLUME 7 L/min; PATIENT TEMPERATURE 37.8; PEEP 5 cm H2O; TOTAL HEMOGLOBIN 11.2 G/dl (12.0-16.0)
[2018-05-02] MEDS: enoxaparin 40mg/0.4ml syringe SUBCUT SCH (07:38)
[2018-05-02] MEDS: cefTRIAXone 1g/NS 100ml IVPB 100 ML IV SCH (07:38)
[2018-05-02] MEDS: pantoprazole 40 MG vial IV SCH (07:38)
[2018-05-02] MEDS: potassium Cl 40MEQ/250ML bag 250 ML IV PRN (07:39)
[2018-05-02] MEDS: K, MAG and/or Phos replacement - Verify level? MC SCH (07:47)
[2018-05-02] MEDS: carBAMazepine 100mg chewable tablet PO SCH ×2 (07:47→20:40)
[2018-05-02] MEDS: acetaminophen 325mg tablet PO PRN (09:04)
[2018-05-02] MEDS: dexamethasone sod phosphate 10mg/ml inj IV SCH ×3 (09:28→20:40)
[2018-05-03] VITALS (24 sets, daily range): BP systolic 88–149; BP diastolic 43–97
[2018-05-03] MEDS: dextrose 5%-1/2 normal saline 1,000 ML IV SCH ×3 (01:05→21:05)
[2018-05-03] MEDS: levetiracetam inj 500 MG in normal saline 100ml IV soln 95 ML IV SCH ×4 (02:14→20:23)
[2018-05-03] MEDS: dexamethasone sod phosphate 10mg/ml inj IV SCH ×4 (02:14→20:23)
[2018-05-03] MEDS: mineral oil/petrolatum ophthal oint EACHEYE SCH ×4 (02:14→20:23)
[2018-05-03 03:30] LABS: ABG BASE EXCESS 2.4 mmol/L (-2.0-3.0); ABG HCO3 25.9 mmol/L (22.0-26.0); ABG OXYGEN SATURATION 98.5 % (95-98); ABG PCO2 (T) 35.1 mmHg (32.0-45.0); ABG PH (T) 7.484 (7.350-7.450); ABG PO2 (T) 124.3 mmHg (83-108); ALLEN'S TEST Positive; FCOHb 0.3 % (0.5-1.5); FMetHb 0.2 % (0.3-1.12); MINUTE VOLUME 6 L/min; PATIENT TEMPERATURE 36.5; PEEP 5 cm H2O; RESPIRATORY RATE (OBSERVED) 9 b/min
[2018-05-03] MEDS: propofol 1000mg/100ml bottle 100 ML IV PRN ×3 (03:40→16:32)
[2018-05-03 05:33] LABS: ALANINE AMINOTRANSFERASE 24 U/L (12-78); ALBUMIN 2.5 G/DL (3.4-5.0); ALBUMIN/GLOBULIN RATIO 0.6 (1.1-1.5); ALKALINE PHOSPHATASE 70 IU/L (46-116); ANION GAP 7 (8-16); ASPARTATE AMINO TRANSFERASE 17 U/L (10-37); BILIRUBIN,TOTAL 0.2 MG/DL (0.1-1.0); BLOOD UREA NITROGEN 9 MG/DL (7-18); BUN/CREATININE RATIO 18.4 (6.6-38.0); CALCIUM 8.5 MG/DL (8.5-10.1); CHLORIDE 104 MMOL/L (99-107); CREATININE 0.49 MG/DL (0.40-0.90); GLUCOSE 161 MG/DL (70-104); MAGNESIUM 2.1 MG/DL (1.5-2.4); POTASSIUM 3.8 MMOL/L (3.5-5.1); SODIUM 140 MMOL/L (135-145); TOTAL CARBON DIOXIDE 28.6 MMOL/L (24-32); TOTAL PROTEIN 6.9 G/DL (6.4-8.2); eGFR > 90 ML/MIN
[2018-05-03] MEDS: pantoprazole 40 MG vial IV SCH (07:52)
[2018-05-03] MEDS: enoxaparin 40mg/0.4ml syringe SUBCUT SCH (07:52)
[2018-05-03] MEDS: acetaminophen 325mg tablet PO PRN (07:53)
[2018-05-03] MEDS: cefTRIAXone 1g/NS 100ml IVPB 100 ML IV SCH (07:55)
[2018-05-03] MEDS: carBAMazepine 100mg chewable tablet PO SCH ×2 (08:00→20:24)
[2018-05-03] MEDS: K, MAG and/or Phos replacement - Verify level? MC SCH (08:00)
[2018-05-03 08:49] LABS: BASOPHILS # (AUTO) 0.1 X10'3 (0-0.2); EOSINOPHILS % (AUTO) 0.1 % (0-6); HEMATOCRIT 33.6 % (35.0-45.0); HEMOGLOBIN 11.3 g/dl (12.0-16.0); LYMPHOCYTES # (AUTO) 1.1 X10'3 (1.1-4.8); LYMPHOCYTES % (AUTO) 14.5 % (21-51); MEAN CORPUSCULAR HEMOGLOBIN 31.9 PG (27.0-31.0); MEAN CORPUSCULAR HGB CONC 33.5 % (33.0-36.5); MEAN CORPUSCULAR VOLUME 95.2 FL (78-98); MEAN PLATELET VOLUME 8.3 FL (7.4-10.4); MONOCYTES # (AUTO) 0.7 X10'3 (0-0.9); MONOCYTES % (AUTO) 9.1 % (2-12); NEUTROPHILS # (AUTO) 5.6 X10'3 (1.8-7.7); NEUTROPHILS % (AUTO) 75.3 % (42-75); PLATELET COUNT 275 X10'3 (140-440); RED BLOOD COUNT 3.53 X10'6 (4.20-5.60); RED CELL DISTRIBUTION WIDTH 12.9 % (11.5-14.5); WHITE BLOOD COUNT 7.4 X10'3 (4.5-11.0)
[2018-05-03] MEDS ORDERED: etomidate 2mg/ml inj. ONE (09:00)
[2018-05-03] MEDS ORDERED: 0.9 % SODIUM CHLORIDE 10 ML VIAL ONE (09:00)
[2018-05-03 09:10] LABS: ALANINE AMINOTRANSFERASE 25 U/L (12-78); ALBUMIN 2.7 G/DL (3.4-5.0); ALBUMIN/GLOBULIN RATIO 0.6 (1.1-1.5); ALKALINE PHOSPHATASE 74 IU/L (46-116); ANION GAP 8 (8-16); ASPARTATE AMINO TRANSFERASE 17 U/L (10-37); BILIRUBIN,TOTAL 0.1 MG/DL (0.1-1.0); BLOOD UREA NITROGEN 10 MG/DL (7-18); BUN/CREATININE RATIO 19.6 (6.6-38.0); CALCIUM 8.7 MG/DL (8.5-10.1); CHLORIDE 105 MMOL/L (99-107); CREATININE 0.51 MG/DL (0.40-0.90); GLUCOSE 107 MG/DL (70-104); MAGNESIUM 2.1 MG/DL (1.5-2.4); POTASSIUM 3.7 MMOL/L (3.5-5.1); SODIUM 141 MMOL/L (135-145); TOTAL CARBON DIOXIDE 27.9 MMOL/L (24-32); TOTAL PROTEIN 7.2 G/DL (6.4-8.2); eGFR > 90 ML/MIN
[2018-05-03] MEDS ORDERED: ipratropium/albuterol 3ml nebule NEB PRN (09:10)
[2018-05-03] MEDS: racepinephrine 11.25mg/0.5ml nebule NEB PRN ×3 (09:19→10:22)
[2018-05-03 11:06] LABS: ABG BASE EXCESS -1.1 mmol/L (-2.0-3.0); ABG HCO3 23.2 mmol/L (22.0-26.0); ABG OXYGEN SATURATION 95.8 % (95-98); ABG PCO2 (T) 37.3 mmHg (32.0-45.0); ABG PH (T) 7.411 (7.350-7.450); ABG PO2 (T) 82.8 mmHg (83-108); ALLEN'S TEST Positive; FCOHb 0.3 % (0.5-1.5); FMetHb 0.2 % (0.3-1.12); FO2Hb 95.3 % (94-100); MINUTE VOLUME 15 L/min; PEEP 5 cm H2O; RESPIRATORY RATE 20 b/min; RESPIRATORY RATE (OBSERVED) 24 b/min; TIDAL VOLUME 350 mL; TOTAL HEMOGLOBIN 12.9 G/dl (12.0-16.0)
[2018-05-03] MEDS: FENTANYL-0.9 % NACL/PF 100 ML IV PRN ×2 (13:00→17:28)
[2018-05-03] MEDS: ipratropium/albuterol 3ml nebule NEB SCH ×2 (17:38→21:23)
[2018-05-04] VITALS (24 sets, daily range): BP systolic 81–119; BP diastolic 41–77
[2018-05-04] MEDS: dexamethasone sod phosphate 10mg/ml inj IV SCH ×4 (02:21→19:38)
[2018-05-04] MEDS: mineral oil/petrolatum ophthal oint EACHEYE SCH ×4 (02:21→19:38)
[2018-05-04] MEDS: levetiracetam inj 500 MG in normal saline 100ml IV soln 95 ML IV SCH ×4 (02:21→19:38)
[2018-05-04] MEDS: propofol 1000mg/100ml bottle 100 ML IV PRN (02:25)
[2018-05-04 02:45] LABS: BASOPHILS # (AUTO) 0.1 X10'3 (0-0.2); BASOPHILS % (AUTO) 0.8 % (0-1); EOSINOPHILS % (AUTO) 0 % (0-6); HEMATOCRIT 30.2 % (35.0-45.0); HEMOGLOBIN 10.1 g/dl (12.0-16.0); LYMPHOCYTES # (AUTO) 0.6 X10'3 (1.1-4.8); LYMPHOCYTES % (AUTO) 8.4 % (21-51); MEAN CORPUSCULAR HEMOGLOBIN 31.4 PG (27.0-31.0); MEAN CORPUSCULAR HGB CONC 33.3 % (33.0-36.5); MEAN CORPUSCULAR VOLUME 94.2 FL (78-98); MEAN PLATELET VOLUME 8.2 FL (7.4-10.4); MONOCYTES # (AUTO) 0.3 X10'3 (0-0.9); MONOCYTES % (AUTO) 3.9 % (2-12); NEUTROPHILS # (AUTO) 6.6 X10'3 (1.8-7.7); NEUTROPHILS % (AUTO) 86.9 % (42-75); PLATELET COUNT 249 X10'3 (140-440); RED BLOOD COUNT 3.21 X10'6 (4.20-5.60); RED CELL DISTRIBUTION WIDTH 12.9 % (11.5-14.5); WHITE BLOOD COUNT 7.6 X10'3 (4.5-11.0)
[2018-05-04 02:52] LABS: ALANINE AMINOTRANSFERASE 71 U/L (12-78); ALBUMIN 2.4 G/DL (3.4-5.0); ALBUMIN/GLOBULIN RATIO 0.6 (1.1-1.5); ALKALINE PHOSPHATASE 77 IU/L (46-116); ANION GAP 6 (8-16); ASPARTATE AMINO TRANSFERASE 49 U/L (10-37); BILIRUBIN,TOTAL 0.1 MG/DL (0.1-1.0); BLOOD UREA NITROGEN 8 MG/DL (7-18); BUN/CREATININE RATIO 16.7 (6.6-38.0); CALCIUM 8.3 MG/DL (8.5-10.1); CHLORIDE 105 MMOL/L (99-107); CREATININE 0.48 MG/DL (0.40-0.90); GLUCOSE 133 MG/DL (70-104); POTASSIUM 3.8 MMOL/L (3.5-5.1); SODIUM 140 MMOL/L (135-145); TOTAL PROTEIN 6.4 G/DL (6.4-8.2); eGFR > 90 ML/MIN
[2018-05-04] MEDS: ipratropium/albuterol 3ml nebule NEB SCH ×4 (03:10→21:10)
[2018-05-04] MEDS: midazolam 100mg in NS 100ml 100 ML IV PRN ×3 (03:37→18:28)
[2018-05-04 04:21] LABS: ABG BASE EXCESS 2.7 mmol/L (-2.0-3.0); ABG HCO3 27.3 mmol/L (22.0-26.0); ABG OXYGEN SATURATION 96.7 % (95-98); ABG PCO2 (T) 42.4 mmHg (32.0-45.0); ABG PH (T) 7.427 (7.350-7.450); ABG PO2 (T) 90.8 mmHg (83-108); ALLEN'S TEST Positive; FCOHb 0.2 % (0.5-1.5); FMetHb 0.1 % (0.3-1.12); FO2Hb 96.4 % (94-100); MINUTE VOLUME 8 L/min; PEEP 5 cm H2O; RESPIRATORY RATE 20 b/min; RESPIRATORY RATE (OBSERVED) 20 b/min; TIDAL VOLUME 350 mL; TOTAL HEMOGLOBIN 10.4 G/dl (12.0-16.0)
[2018-05-04] MEDS ORDERED: normal saline 1000ml 1,000 ML IV ONE (08:00)
[2018-05-04] MEDS: K, MAG and/or Phos replacement - Verify level? MC SCH (08:00)
[2018-05-04] MEDS: cefTRIAXone 1g/NS 100ml IVPB 100 ML IV SCH (09:25)
[2018-05-04] MEDS: enoxaparin 40mg/0.4ml syringe SUBCUT SCH (09:25)
[2018-05-04] MEDS: pantoprazole 40 MG vial IV SCH (09:26)
[2018-05-04] MEDS: FENTANYL-0.9 % NACL/PF 100 ML IV PRN (09:39)
[2018-05-04] MEDS: carBAMazepine 100mg chewable tablet PO SCH ×2 (10:11→19:40)
[2018-05-04] MEDS ORDERED: normal saline 1000ml 1,000 ML IV SCH (11:15)
[2018-05-04] MEDS: normal saline 1000ml 1,000 ML IV SCH ×2 (12:05→19:37)
[2018-05-04] MEDS ORDERED: albumin (human) 25% 100 ML IV solution IV ONE (12:20)
[2018-05-04] MEDS ORDERED: ziprasidone IM 20mg inj **IM only IM ONE (17:20)
[2018-05-04] MEDS: lactobacillus rhamnosus 10,000 MMU CELLS/CAPSULE PO SCH (19:38)
[2018-05-04] MEDS: albumin (human) 25% 100 ML IV solution IV SCH (19:39)
[2018-05-04] MEDS: ziprasidone IM 20mg inj **IM only IM PRN (19:52)
[2018-05-05] VITALS (24 sets, daily range): BP systolic 95–121; BP diastolic 50–78
[2018-05-05] MEDS: normal saline 1000ml 1,000 ML IV SCH ×4 (01:25→21:25)
[2018-05-05] MEDS: mineral oil/petrolatum ophthal oint EACHEYE SCH ×4 (01:55→20:27)
[2018-05-05] MEDS: albumin (human) 25% 100 ML IV solution IV SCH ×4 (01:56→20:53)
[2018-05-05] MEDS: dexamethasone sod phosphate 10mg/ml inj IV SCH ×4 (01:56→20:27)
[2018-05-05] MEDS: levetiracetam inj 500 MG in normal saline 100ml IV soln 95 ML IV SCH ×4 (01:57→20:12)
[2018-05-05 03:18] LABS: BASOPHILS % (AUTO) 0.3 % (0-1); EOSINOPHILS % (AUTO) 0.6 % (0-6); HEMATOCRIT 25.8 % (35.0-45.0); HEMOGLOBIN 8.7 g/dl (12.0-16.0); LYMPHOCYTES # (AUTO) 0.9 X10'3 (1.1-4.8); LYMPHOCYTES % (AUTO) 15.3 % (21-51); MEAN CORPUSCULAR HEMOGLOBIN 31.8 PG (27.0-31.0); MEAN CORPUSCULAR HGB CONC 33.6 % (33.0-36.5); MEAN CORPUSCULAR VOLUME 94.8 FL (78-98); MEAN PLATELET VOLUME 8.1 FL (7.4-10.4); MONOCYTES # (AUTO) 0.5 X10'3 (0-0.9); MONOCYTES % (AUTO) 7.8 % (2-12); NEUTROPHILS # (AUTO) 4.4 X10'3 (1.8-7.7); PLATELET COUNT 223 X10'3 (140-440); RED BLOOD COUNT 2.72 X10'6 (4.20-5.60); RED CELL DISTRIBUTION WIDTH 13.1 % (11.5-14.5); WHITE BLOOD COUNT 5.8 X10'3 (4.5-11.0)
[2018-05-05] MEDS: ipratropium/albuterol 3ml nebule NEB SCH ×4 (03:25→20:28)
[2018-05-05 03:32] LABS: ALANINE AMINOTRANSFERASE 37 U/L (12-78); ALBUMIN 2.8 G/DL (3.4-5.0); ALBUMIN/GLOBULIN RATIO 0.8 (1.1-1.5); ALKALINE PHOSPHATASE 57 IU/L (46-116); ANION GAP 6 (8-16); ASPARTATE AMINO TRANSFERASE 12 U/L (10-37); BILIRUBIN,TOTAL 0.1 MG/DL (0.1-1.0); BLOOD UREA NITROGEN 11 MG/DL (7-18); BUN/CREATININE RATIO 28.9 (6.6-38.0); CALCIUM 8.3 MG/DL (8.5-10.1); CHLORIDE 107 MMOL/L (99-107); CREATININE 0.38 MG/DL (0.40-0.90); GLUCOSE 102 MG/DL (70-104); POTASSIUM 3.7 MMOL/L (3.5-5.1); SODIUM 141 MMOL/L (135-145); TOTAL CARBON DIOXIDE 28.4 MMOL/L (24-32); TOTAL PROTEIN 6.1 G/DL (6.4-8.2); eGFR > 90 ML/MIN
[2018-05-05 05:05] LABS: ABG BASE EXCESS -1.9 mmol/L (-2.0-3.0); ABG HCO3 20.9 mmol/L (22.0-26.0); ABG OXYGEN SATURATION 96.7 % (95-98); ABG PCO2 (T) 29.4 mmHg (32.0-45.0); ABG PH (T) 7.472 (7.350-7.450); ABG PO2 (T) 98.4 mmHg (83-108); ALLEN'S TEST Positive; FCOHb 0.2 % (0.5-1.5); FO2Hb 96.5 % (94-100); MINUTE VOLUME 9 L/min; PATIENT TEMPERATURE 37.2; PEEP 5 cm H2O; RESPIRATORY RATE 20 b/min; RESPIRATORY RATE (OBSERVED) 23 b/min; TIDAL VOLUME 350 mL; TOTAL HEMOGLOBIN 10.1 G/dl (12.0-16.0)
[2018-05-05] MEDS: ziprasidone IM 20mg inj **IM only IM PRN (07:22)
[2018-05-05] MEDS: midazolam 100mg in NS 100ml 100 ML IV PRN ×2 (07:44→19:09)
[2018-05-05] MEDS: K, MAG and/or Phos replacement - Verify level? MC SCH (08:00)
[2018-05-05] MEDS: cefTRIAXone 1g/NS 100ml IVPB 100 ML IV SCH (09:08)
[2018-05-05] MEDS: lactobacillus rhamnosus 10,000 MMU CELLS/CAPSULE PO SCH ×2 (09:09→20:27)
[2018-05-05] MEDS: enoxaparin 40mg/0.4ml syringe SUBCUT SCH (09:09)
[2018-05-05] MEDS: carBAMazepine 100mg chewable tablet PO SCH ×2 (09:10→20:28)
[2018-05-05] MEDS: pantoprazole 40 MG vial IV SCH (09:10)
[2018-05-06] VITALS (24 sets, daily range): BP systolic 102–130; BP diastolic 53–77
[2018-05-06] MEDS: levetiracetam inj 500 MG in normal saline 100ml IV soln 95 ML IV SCH ×4 (02:06→20:02)
[2018-05-06] MEDS: mineral oil/petrolatum ophthal oint EACHEYE SCH ×4 (02:06→20:00)
[2018-05-06 02:35] LABS: BASOPHILS % (AUTO) 0.1 % (0-1); EOSINOPHILS # (AUTO) 0.1 X10'3 (0-0.9); EOSINOPHILS % (AUTO) 0.9 % (0-6); HEMATOCRIT 24.9 % (35.0-45.0); HEMOGLOBIN 8.3 g/dl (12.0-16.0); LYMPHOCYTES # (AUTO) 1.5 X10'3 (1.1-4.8); LYMPHOCYTES % (AUTO) 21.2 % (21-51); MEAN CORPUSCULAR HEMOGLOBIN 31.4 PG (27.0-31.0); MEAN CORPUSCULAR HGB CONC 33.3 % (33.0-36.5); MEAN CORPUSCULAR VOLUME 94.4 FL (78-98); MEAN PLATELET VOLUME 7.5 FL (7.4-10.4); MONOCYTES # (AUTO) 0.7 X10'3 (0-0.9); MONOCYTES % (AUTO) 10.4 % (2-12); NEUTROPHILS # (AUTO) 4.8 X10'3 (1.8-7.7); NEUTROPHILS % (AUTO) 67.4 % (42-75); PLATELET COUNT 236 X10'3 (140-440); RED BLOOD COUNT 2.64 X10'6 (4.20-5.60); RED CELL DISTRIBUTION WIDTH 13.4 % (11.5-14.5); WHITE BLOOD COUNT 7.1 X10'3 (4.5-11.0)
[2018-05-06] MEDS: albumin (human) 25% 100 ML IV solution IV SCH ×3 (02:36→08:31)
[2018-05-06] MEDS: ipratropium/albuterol 3ml nebule NEB SCH ×4 (02:47→20:31)
[2018-05-06 02:49] LABS: ALANINE AMINOTRANSFERASE 39 U/L (12-78); ALBUMIN 3.4 G/DL (3.4-5.0); ALBUMIN/GLOBULIN RATIO 1.2 (1.1-1.5); ALKALINE PHOSPHATASE 51 IU/L (46-116); ANION GAP 4 (8-16); ASPARTATE AMINO TRANSFERASE 22 U/L (10-37); BILIRUBIN,TOTAL 0.2 MG/DL (0.1-1.0); BLOOD UREA NITROGEN 12 MG/DL (7-18); BUN/CREATININE RATIO 32.4 (6.6-38.0); CALCIUM 8.3 MG/DL (8.5-10.1); CHLORIDE 106 MMOL/L (99-107); CREATININE 0.37 MG/DL (0.40-0.90); GLUCOSE 92 MG/DL (70-104); POTASSIUM 3.4 MMOL/L (3.5-5.1); SODIUM 140 MMOL/L (135-145); TOTAL CARBON DIOXIDE 29.8 MMOL/L (24-32); TOTAL PROTEIN 6.3 G/DL (6.4-8.2); eGFR > 90 ML/MIN
[2018-05-06 03:31] LABS: ABG BASE EXCESS 1.2 mmol/L (-2.0-3.0); ABG HCO3 24.4 mmol/L (22.0-26.0); ABG OXYGEN SATURATION 96.4 % (95-98); ABG PH (T) 7.475 (7.350-7.450); ABG PO2 (T) 88.3 mmHg (83-108); ALLEN'S TEST Positive; FCOHb 0.5 % (0.5-1.5); FMetHb 0.3 % (0.3-1.12); FO2Hb 95.6 % (94-100); MINUTE VOLUME 9 L/min; PATIENT TEMPERATURE 37.7; PEEP 5 cm H2O; RESPIRATORY RATE 0 b/min; RESPIRATORY RATE (OBSERVED) 18 b/min; TIDAL VOLUME 421 mL; TOTAL HEMOGLOBIN 9.1 G/dl (12.0-16.0)
[2018-05-06] MEDS: potassium Cl 40MEQ/250ML bag 250 ML IV PRN (03:59)
[2018-05-06] MEDS: normal saline 1000ml 1,000 ML IV SCH (04:00)
[2018-05-06] MEDS: LORazepam 2 mg/ml vial IV PRN (05:49)
[2018-05-06] MEDS ORDERED: lisinopril 2.5mg tablet PO SCH (08:00)
[2018-05-06] MEDS: K, MAG and/or Phos replacement - Verify level? MC SCH (08:00)
[2018-05-06] MEDS: pantoprazole 40 MG vial IV SCH (08:29)
[2018-05-06] MEDS: dexamethasone sod phosphate 10mg/ml inj IV SCH ×2 (08:29→20:01)
[2018-05-06] MEDS: lactobacillus rhamnosus 10,000 MMU CELLS/CAPSULE PO SCH ×2 (08:29→20:01)
[2018-05-06] MEDS: cefTRIAXone 1g/NS 100ml IVPB 100 ML IV SCH (08:32)
[2018-05-06] MEDS: carBAMazepine 100mg chewable tablet PO SCH ×2 (08:37→20:02)
[2018-05-06] MEDS: enoxaparin 40mg/0.4ml syringe SUBCUT SCH (08:41)
[2018-05-06] MEDS: midazolam 100mg in NS 100ml 100 ML IV PRN (10:14)
[2018-05-06] MEDS: dexmedetomidin/NS 400mcg/100ml 100 ML IV SCH ×2 (11:32→22:32)
[2018-05-07] VITALS (25 sets, daily range): BP systolic 93–141; BP diastolic 46–86
[2018-05-07] MEDS ORDERED: FENTANYL-0.9 % NACL/PF 100 ML IV PRN (00:30)
[2018-05-07] MEDS: LORazepam 2 mg/ml vial IV PRN (00:34)
[2018-05-07] MEDS: levetiracetam inj 500 MG in normal saline 100ml IV soln 95 ML IV SCH ×4 (02:13→19:43)
[2018-05-07] MEDS: mineral oil/petrolatum ophthal oint EACHEYE SCH ×4 (02:13→19:33)
[2018-05-07] MEDS: ipratropium/albuterol 3ml nebule NEB SCH ×2 (02:31→08:30)
[2018-05-07 03:02] LABS: BASOPHILS # (AUTO) 0.1 X10'3 (0-0.2); BASOPHILS % (AUTO) 0.7 % (0-1); EOSINOPHILS # (AUTO) 0.2 X10'3 (0-0.9); EOSINOPHILS % (AUTO) 1.9 % (0-6); HEMATOCRIT 28.2 % (35.0-45.0); HEMOGLOBIN 9.5 g/dl (12.0-16.0); LYMPHOCYTES # (AUTO) 1.9 X10'3 (1.1-4.8); LYMPHOCYTES % (AUTO) 18.1 % (21-51); MEAN CORPUSCULAR HEMOGLOBIN 31.8 PG (27.0-31.0); MEAN CORPUSCULAR HGB CONC 33.7 % (33.0-36.5); MEAN CORPUSCULAR VOLUME 94.3 FL (78-98); MONOCYTES # (AUTO) 0.6 X10'3 (0-0.9); MONOCYTES % (AUTO) 6.1 % (2-12); NEUTROPHILS # (AUTO) 7.6 X10'3 (1.8-7.7); NEUTROPHILS % (AUTO) 73.2 % (42-75); PLATELET COUNT 269 X10'3 (140-440); RED BLOOD COUNT 2.99 X10'6 (4.20-5.60); RED CELL DISTRIBUTION WIDTH 13.1 % (11.5-14.5); WHITE BLOOD COUNT 10.4 X10'3 (4.5-11.0)
[2018-05-07 03:15] LABS: ALANINE AMINOTRANSFERASE 55 U/L (12-78); ALBUMIN 3.5 G/DL (3.4-5.0); ALBUMIN/GLOBULIN RATIO 1.1 (1.1-1.5); ALKALINE PHOSPHATASE 59 IU/L (46-116); ANION GAP 6 (8-16); ASPARTATE AMINO TRANSFERASE 29 U/L (10-37); BILIRUBIN,TOTAL 0.2 MG/DL (0.1-1.0); BLOOD UREA NITROGEN 15 MG/DL (7-18); BUN/CREATININE RATIO 28.3 (6.6-38.0); CALCIUM 8.7 MG/DL (8.5-10.1); CHLORIDE 103 MMOL/L (99-107); CREATININE 0.53 MG/DL (0.40-0.90); GLUCOSE 102 MG/DL (70-104); POTASSIUM 3.6 MMOL/L (3.5-5.1); SODIUM 138 MMOL/L (135-145); TOTAL CARBON DIOXIDE 29.4 MMOL/L (24-32); TOTAL PROTEIN 6.7 G/DL (6.4-8.2); eGFR > 90 ML/MIN
[2018-05-07 03:25] LABS: ABG BASE EXCESS 1.6 mmol/L (-2.0-3.0); ABG HCO3 24.7 mmol/L (22.0-26.0); ABG OXYGEN SATURATION 93.6 % (95-98); ABG PCO2 (T) 35.4 mmHg (32.0-45.0); ABG PH (T) 7.467 (7.350-7.450); ABG PO2 (T) 72.4 mmHg (83-108); ALLEN'S TEST Positive; FCOHb 0.3 % (0.5-1.5); FMetHb 0.3 % (0.3-1.12); MINUTE VOLUME 11 L/min; PATIENT TEMPERATURE 38.2; PEEP 5 cm H2O; RESPIRATORY RATE 0 b/min; RESPIRATORY RATE (OBSERVED) 24 b/min; TIDAL VOLUME 371 mL; TOTAL HEMOGLOBIN 10.4 G/dl (12.0-16.0)
[2018-05-07] MEDS: dexmedetomidin/NS 400mcg/100ml 100 ML IV SCH ×2 (07:15→15:59)
[2018-05-07] MEDS: enoxaparin 40mg/0.4ml syringe SUBCUT SCH (07:15)
[2018-05-07] MEDS: pantoprazole 40 MG vial IV SCH (07:15)
[2018-05-07] MEDS: dexamethasone sod phosphate 10mg/ml inj IV SCH ×2 (07:16→19:43)
[2018-05-07] MEDS: lactobacillus rhamnosus 10,000 MMU CELLS/CAPSULE PO SCH ×2 (07:16→19:39)
[2018-05-07] MEDS: cefTRIAXone 1g/NS 100ml IVPB 100 ML IV SCH (07:16)
[2018-05-07] MEDS: carBAMazepine 100mg chewable tablet PO SCH ×2 (07:17→19:41)
[2018-05-07] MEDS: K, MAG and/or Phos replacement - Verify level? MC SCH (08:00)
[2018-05-07] MEDS ORDERED: racepinephrine 11.25mg/0.5ml nebule IH ONE ×2 (09:15→11:50)
[2018-05-08] VITALS (19 sets, daily range): BP systolic 93–125; BP diastolic 55–94
[2018-05-08] MEDS: mineral oil/petrolatum ophthal oint EACHEYE SCH ×4 (02:00→20:00)
[2018-05-08] MEDS: dexmedetomidin/NS 400mcg/100ml 100 ML IV SCH ×2 (02:15→19:25)
[2018-05-08] MEDS: levetiracetam inj 500 MG in normal saline 100ml IV soln 95 ML IV SCH ×4 (02:15→20:11)
[2018-05-08 03:39] LABS: BASOPHILS % (AUTO) 0.6 % (0-1); EOSINOPHILS # (AUTO) 0.4 X10'3 (0-0.9); EOSINOPHILS % (AUTO) 4.5 % (0-6); HEMATOCRIT 32.8 % (35.0-45.0); HEMOGLOBIN 11.1 g/dl (12.0-16.0); LYMPHOCYTES # (AUTO) 1.8 X10'3 (1.1-4.8); LYMPHOCYTES % (AUTO) 22.1 % (21-51); MEAN CORPUSCULAR HEMOGLOBIN 31.8 PG (27.0-31.0); MEAN CORPUSCULAR HGB CONC 33.8 % (33.0-36.5); MEAN CORPUSCULAR VOLUME 94.2 FL (78-98); MEAN PLATELET VOLUME 6.8 FL (7.4-10.4); MONOCYTES # (AUTO) 0.7 X10'3 (0-0.9); MONOCYTES % (AUTO) 7.9 % (2-12); NEUTROPHILS # (AUTO) 5.4 X10'3 (1.8-7.7); NEUTROPHILS % (AUTO) 64.9 % (42-75); PLATELET COUNT 398 X10'3 (140-440); RED BLOOD COUNT 3.48 X10'6 (4.20-5.60); RED CELL DISTRIBUTION WIDTH 13.1 % (11.5-14.5); WHITE BLOOD COUNT 8.3 X10'3 (4.5-11.0)
[2018-05-08 03:55] LABS: ALANINE AMINOTRANSFERASE 50 U/L (12-78); ALBUMIN 3.8 G/DL (3.4-5.0); ALKALINE PHOSPHATASE 68 IU/L (46-116); ANION GAP 9 (8-16); ASPARTATE AMINO TRANSFERASE 22 U/L (10-37); BILIRUBIN,TOTAL 0.4 MG/DL (0.1-1.0); BLOOD UREA NITROGEN 13 MG/DL (7-18); BUN/CREATININE RATIO 22.4 (6.6-38.0); CALCIUM 9.4 MG/DL (8.5-10.1); CHLORIDE 102 MMOL/L (99-107); CREATININE 0.58 MG/DL (0.40-0.90); GLUCOSE 115 MG/DL (70-104); POTASSIUM 3.6 MMOL/L (3.5-5.1); SODIUM 141 MMOL/L (135-145); TOTAL PROTEIN 7.6 G/DL (6.4-8.2); eGFR > 90 ML/MIN
[2018-05-08] MEDS: cefTRIAXone 1g/NS 100ml IVPB 100 ML IV SCH (07:30)
[2018-05-08] MEDS: pantoprazole 40 MG vial IV SCH (07:30)
[2018-05-08] MEDS: carBAMazepine 100mg chewable tablet PO SCH (07:31)
[2018-05-08] MEDS: dexamethasone sod phosphate 10mg/ml inj IV SCH ×2 (07:32→20:11)
[2018-05-08] MEDS: enoxaparin 40mg/0.4ml syringe SUBCUT SCH (07:32)
[2018-05-08] MEDS: lactobacillus rhamnosus 10,000 MMU CELLS/CAPSULE PO SCH ×2 (07:32→20:10)
[2018-05-08] MEDS: K, MAG and/or Phos replacement - Verify level? MC SCH (08:00)
[2018-05-08] MEDS: acetaminophen 325mg tablet PO PRN (18:41)
[2018-05-08] MEDS ORDERED: oxcarbazepine 150mg tablet PO SCH (21:00)
[2018-05-09] VITALS (12 sets, daily range): BP systolic 73–122; BP diastolic 43–85
[2018-05-09] MEDS: levetiracetam inj 500 MG in normal saline 100ml IV soln 95 ML IV SCH (02:45)
[2018-05-09 03:29] LABS: BASOPHILS % (AUTO) 0.3 % (0-1); EOSINOPHILS # (AUTO) 0.5 X10'3 (0-0.9); EOSINOPHILS % (AUTO) 7.1 % (0-6); HEMATOCRIT 34.6 % (35.0-45.0); HEMOGLOBIN 11.5 g/dl (12.0-16.0); LYMPHOCYTES # (AUTO) 1.4 X10'3 (1.1-4.8); LYMPHOCYTES % (AUTO) 19.3 % (21-51); MEAN CORPUSCULAR HEMOGLOBIN 31.6 PG (27.0-31.0); MEAN CORPUSCULAR HGB CONC 33.3 % (33.0-36.5); MEAN PLATELET VOLUME 6.7 FL (7.4-10.4); MONOCYTES # (AUTO) 0.5 X10'3 (0-0.9); MONOCYTES % (AUTO) 7.1 % (2-12); NEUTROPHILS # (AUTO) 4.7 X10'3 (1.8-7.7); NEUTROPHILS % (AUTO) 66.2 % (42-75); PLATELET COUNT 419 X10'3 (140-440); RED BLOOD COUNT 3.64 X10'6 (4.20-5.60); RED CELL DISTRIBUTION WIDTH 13.1 % (11.5-14.5)
[2018-05-09 04:39] LABS: ALANINE AMINOTRANSFERASE 75 U/L (12-78); ALBUMIN 3.7 G/DL (3.4-5.0); ALBUMIN/GLOBULIN RATIO 0.9 (1.1-1.5); ALKALINE PHOSPHATASE 67 IU/L (46-116); ANION GAP 6 (8-16); ASPARTATE AMINO TRANSFERASE 34 U/L (10-37); BILIRUBIN,TOTAL 0.2 MG/DL (0.1-1.0); BLOOD UREA NITROGEN 22 MG/DL (7-18); BUN/CREATININE RATIO 41.5 (6.6-38.0); CALCIUM 9.6 MG/DL (8.5-10.1); CHLORIDE 101 MMOL/L (99-107); CREATININE 0.53 MG/DL (0.40-0.90); GLUCOSE 106 MG/DL (70-104); POTASSIUM 4.5 MMOL/L (3.5-5.1); SODIUM 137 MMOL/L (135-145); TOTAL CARBON DIOXIDE 29.7 MMOL/L (24-32); TOTAL PROTEIN 7.6 G/DL (6.4-8.2); eGFR > 90 ML/MIN
[2018-05-09] MEDS ORDERED: OXCA300T PO ×2 (07:20)
[2018-05-09] MEDS: lactobacillus rhamnosus 10,000 MMU CELLS/CAPSULE PO SCH (07:44)
[2018-05-09] MEDS: pantoprazole 40 MG vial IV SCH (07:45)
[2018-05-09] MEDS: dexamethasone sod phosphate 10mg/ml inj IV SCH (07:45)
[2018-05-09] MEDS: enoxaparin 40mg/0.4ml syringe SUBCUT SCH (07:46)
[2018-05-09] MEDS ORDERED: oxcarbazepine 150mg tablet PO SCH (08:00)
[2018-05-09] MEDS ORDERED: LEVE250T PO (11:50)
[2018-05-09] MEDS ORDERED: levetiracetam 250mg tablet PO SCH (20:00)
== END 2018-05-09 16:56 | disposition home or self-care (01) | DRG 207 ==
LOC: ER 16:52 → EEVIPCON 16:52 → ED HOLD 20:41 → EEVIPCON 20:41 → ICU 2S 22:35
PROVIDERS: ADMIT Internal Medicine Critical Care Medicine
PROC: 5A1955Z Respiratory Ventilation, Greater than 96 Consecutive Hours (ICD-10-PCS; principal; 2018-04-26)
PROC: 0BH17EZ Insertion of Endotracheal Airway into Trachea, Via Natural or Artificial Opening (ICD-10-PCS; 2018-04-26)
PROC: 4A10X4Z Monitoring of Central Nervous Electrical Activity, External Approach (ICD-10-PCS; 2018-04-29)
PROC: 02HV33Z Insertion of Infusion Device into Superior Vena Cava, Percutaneous Approach (ICD-10-PCS; 2018-04-29)
PROC: 5A1945Z Respiratory Ventilation, 24-96 Consecutive Hours (ICD-10-PCS; 2018-05-03)
PROC: 5A09357 Assistance with Respiratory Ventilation, Less than 24 Consecutive Hours, Continuous Positive Airway Pressure (ICD-10-PCS; 2018-05-07)
DX: J96.00 Acute respiratory failure, unspecified whether with hypoxia or hypercapnia (principal); G40.901 Epilepsy, unspecified, not intractable, with status epilepticus; E87.6 Hypokalemia; R45.1 Restlessness and agitation; F12.90 Cannabis use, unspecified, uncomplicated; R00.0 Tachycardia, unspecified; Z59.0 Homelessness; Z79.899 Other long term (current) drug therapy
CPT/HCPCS: 36415; 36600; 70450; 70544; 70551; 71045; 80053; 80156; 80177; 80305; 81001; 82803; 82945; 82948; 83605; 83690; 83735; 84100; 84132; 84134; 84145; 84157; 84703; 85018; 85025; 86788; 86789; 87015; 87070; 87077; 87185; 87186; 89051; 94002; 94003; 94640; 94660; 94760; 95816; 96365; 96375; 96376; 97116; 97162; 97530; 99291; A6213; A6255; A6258; A6449; A7015; C1758; C9113; J0133; J0696; J1100; J1650; J1953; J2060; J2250; J2405; J2560; J2704; J3010; J3480; J3486; J3490; J7030; J7040; P9047